=== PATIENT | male | born 1990 | race Asian ===

== ENCOUNTER 2017-02-21 10:25 | Day surgery (SDC) | payer OTHER ==
[2017-02-21] MEDS ORDERED: LIDO/EPI 2%** Not for Epidural 20 ML MDV ONE (10:54)
[2017-02-21] MEDS ORDERED: LIDO/EPI 1% **for epidural** 30 ML SDV ONE (10:54)
[2017-02-21] MEDS ORDERED: LR 1,000 ML IV ONE (11:17)
[2017-02-21] MEDS ORDERED: ceFAZolin 2 GM/SWFI 2 GM/20 ML SYR IVP ONE (11:21)
--- NOTE | 2017-02-21 11:38 | GHP ---
[f rep st] PREOP HISTORY AND PHYSICAL DATE OF ADMISSION: 02/21/2017 CHIEF COMPLAINT: Transgender Top Surgery. HISTORY OF PRESENTING COMPLAINT: The patient is a 26-year-old female to male transsexual, who is seeking breast removal surgery. PAST MEDICAL HISTORY: Otherwise, unremarkable healthy nonsmoker. MEDICATIONS: Testosterone injections. No other regular medications. ALLERGIES: No allergies. PHYSICAL EXAMINATION: GENERAL: A healthy 26-year-old female to male transsexual with a very masculine body habitus. CARDIOVASCULAR: Heart sounds are normal respiratory exam. CHEST: Clear with good air entry. BREASTS: Reveals Warren 4 level of breast development. IMPRESSION: Fit for procedure. PLAN: Bilateral subcutaneous mastectomy with free nipple grafting. /[id number]/MODL MTDD
--- NOTE | 2017-02-21 11:47 | PDANEPAE ---
ANE History of Present Illness 26 year old for bilateral breast reduction. ANE Past Medical History - Cardiovascular History Hx Hypertension: No Hx Arrhythmias: No Hx Chest Pain: No Hx Coronary Artery / Peripheral Vascular Disease: No Hx CHF / Valvular Disease: No Hx Palpitations: No - Pulmonary History Hx COPD: No Hx Asthma/Reactive Airway Disease: No Hx Recent Upper Respiratory Infection: No Hx Oxygen in Use at Home: No Hx Sleep Apnea: No Sleep Apnea Screening Result - Last Documented: Negative - Neurologic History Hx Cerebrovascular Accident: No Hx Seizures: No Hx Dementia: No - Endocrine History Hx Diabetes: No Obesity: yes, mild - Renal History Hx Renal Disorders: No - Liver History Hx Hepatic Disorders: No - Neurological & Psychiatric Hx Hx Neurological and Psychiatric Disorders: No - Cancer History Hx Cancer: No - Congenital Disorder History Hx Congenital Disorders: No - GI History Hx Gastrointestinal Disorders: No - Other Health History Other Health History: NEG - Chronic Pain History Chronic Pain: No - Surgical History Prior Surgeries: NEG ANE Review of Systems Review of Systems: - Exercise capacity Exercise capacity: >=4 METS METS (RN): 6 METS ANE Patient History - Allergies Allergies/Adverse Reactions: lactose Allergy (Verified 01/18/17 10:19) - Home Medications Home medications: home medication list seen and reviewed Home Medications: Testosterone 01/18/17 [Last Taken 02/20/17] - NPO status NPO Status: no food or drink >8 hours NPO Since - Liquids (Date): 02/21/17 NPO Since - Liquids (Time): 06:00 NPO Since - Solids (Date): 02/20/17 NPO Since - Solids (Time): 21:00 - Anes Hx Anes Hx: no prior problems - Smoking Hx Smoking Status: Never smoked Marijuana use: No - Alcohol Use Alcohol Use: Occasionally - Family Anes Hx Family Anes Hx: neg - N/A Family Hx Anesthesia Complications: PT ADOPTED ANE Labs/Vital Signs - Vital Signs Vital Signs: reviewed preoperatively; see RN documention for details Blood Pressure: 126/75 Heart Rate: 63 Respiratory Rate: 14 O2 Sat (%): 96 Height: 172.72 cm Weight: 92.986 kg ANE Physical Exam - Airway Neck exam: FROM Mallampati Score: Class 2 Mouth exam: normal dental/mouth exam - Pulmonary Pulmonary: no respiratory distress - Cardiovascular Cardiovascular: regular rate and rhythym - ASA Status ASA Status: II ANE Anesthesia Plan Anesthesia Plan: general endotracheal anesthesia Total IV Anesthesia: No
[2017-02-21] MEDS ORDERED: MIDAZOLAM 2 MG/2 ML VIAL ONE (11:56)
[2017-02-21] MEDS ORDERED: MIDAZOLAM 2 MG/2 ML VIAL IVP ONE (11:57)
[2017-02-21] MEDS ORDERED: fentaNYL 100 MCG/2 ML INJ ONE ×3 (11:59→14:48)
[2017-02-21] MEDS ORDERED: PROPOFOL/EMULSION 500 MG/50 ML BOTTLE IV ONE ×2 (11:59→13:13)
[2017-02-21] MEDS ORDERED: DEXAMETHASONE 4 MG/ML VIAL ONE (12:15)
[2017-02-21] MEDS ORDERED: ONDANSETRON 4 MG/2 ML VIAL ONE (12:17)
[2017-02-21] MEDS ORDERED: NS 500 ML IV PRN (12:51)
[2017-02-21] MEDS ORDERED: HYDROmorphONE/DILAUDID 1 MG/ML INJ IVP PRN (12:51)
[2017-02-21] MEDS ORDERED: LR 500 ML IV PRN (12:51)
[2017-02-21] MEDS ORDERED: OXYCODONE/APAP 5/325 TAB PO PRN (12:51)
[2017-02-21] MEDS ORDERED: fentaNYL 100 MCG/2 ML INJ IVP PRN (12:51)
[2017-02-21] MEDS ORDERED: NALOXONE HCL 0.4 MG/ML INJ IVP PRN (12:51)
[2017-02-21] MEDS ORDERED: HYDROCODONE/APAP 5/325 TAB PO PRN (14:23)
[2017-02-21] MEDS ORDERED: OXYCODONE/APAP 5/325 TAB ONE (14:48)
[2017-02-21 15:05] VITALS: TEMP 97.9
--- NOTE | 2017-02-21 15:34 | GOP ---
[f rep st] OPERATIVE REPORT DATE OF OPERATION: 02/21/2017 SURGEON: Campbell Williamson MD PREOPERATIVE DIAGNOSIS: Transsexual female to male top surgery. POSTOPERATIVE DIAGNOSIS: Transsexual female to male top surgery. PROCEDURE PERFORMED: Bilateral subcutaneous mastectomy with free nipple graft. FINDINGS: ESTIMATED BLOOD LOSS: 25 mL. DESCRIPTION OF PROCEDURE: With the patient lying supine under general anesthesia, anterior chest reg ion was prepped and draped in usual fashion. Circumareolar incisions were made bilaterally according to preoperative markings to remove the central portion of the nipple areolar complexes with a diamet er between 2.5 and 3 cm. The tissue and nipple areolar complexes were removed at the dermal level, l eaving no fat on them. The nipples were wrapped in a saline-soaked gauze and placed on the back tabl e. The incisions were then made on both breasts according to preoperative markings along the upper porti on of the proposed mastectomy incision. Dissection was taken down through subcutaneous tissue and th en superiorly, just superficial to the glandular tissue to the pectoralis muscle. Dissection was the n carried down, just superficial to the pectoralis muscle fascia, completely elevating the gland on e ach side. Adequate skin was confirmed and inferior incisions were made according to the preoperative markings, which went just along the pectoralis insertion and above the inframammary fold inferiorly and extending up laterally just below the pectoralis border. The mastectomy specimens were completel y freed up and removed. Bleeders were controlled with electrocautery. The weight of the specimens on both sides was nearly identical at 698 g. [address]-Do dr ains were placed and temporary staple closure was carried out. Stratafix 3-0 running subcuticular brito tures were then placed and the alix were removed. Nipple positions were marked at the border of t he medial two-thirds in the lateral third of the clavicle and 2 fingerbreadths above the incisions. The patient was sat up and position was carefully observed and confirmed. Skin was de-epithelialized in the nipple recipient sites and the nipples were then placed and stapled in position. They were t hen sutured with 4-0 Prolene over Xeroform and fluff gauze as a bolus tie-over dressing. The remaind er of the incisions were dressed with Steri-Strips and gauze. The procedure was tolerated well. SURGEON: Campbell Williamson MD. /[id number]/MODL
[2017-02-21 15:36] VITALS: BP 114/77
[2017-02-21 15:38] VITALS: PULSE 71; RESP 14; O2SAT 96
--- NOTE | 2017-02-21 16:28 | POSTANESTH ---
Post Anesthetic Evaluation Cardiovascular Status: Normal, Stable, Similar to Pre-Op Cond Respiratory Status: Normal, Stable, Similar to Pre-op Cond. Level of Consciousness/Mental Status: Can Participate in Eval, Alert and Oriented Pain Control: Adequate, Prn Tx Ordered Nausea/Vomiting Control: Adequate, Prn Tx Ordered Complications Possibly Related to Anesthesia: None Noted
== END 2017-02-21 16:15 | disposition home or self-care (01) ==
LOC: FSGY 10:25
PROVIDERS: ATTEND Plastic Surgery
DX: Z41.8 Encounter for other procedures for purposes other than remedying health state (principal); F64.0 Transsexualism
CPT/HCPCS: J0690; J1100; J2250; J2405; J2704; J3010